=== PATIENT | female | born 1940 | race Caucasian/White ===

== ENCOUNTER → 2016-11-19 | Outpatient (CLI) | payer MEDICARE, OTHER | END | disposition home or self-care (01) | LOC: CFH 10:33 | PROVIDERS: ATTEND Family Medicine | DX: Z13.820 Encounter for screening for osteoporosis (principal); M81.0 Age-related osteoporosis without current pathological fracture | CPT/HCPCS: 77080 ==

== ENCOUNTER → 2016-12-06 | Outpatient (CLI) | payer MEDICARE, OTHER | END | disposition home or self-care (01) | LOC: EDSTATUS 11-18 15:53 → ROC 13:40 | PROVIDERS: ATTEND Radiology Radiation Oncology | DX: C50.911 Malignant neoplasm of unspecified site of right female breast (principal); R14.0 Abdominal distension (gaseous); M25.551 Pain in right hip; Z92.3 Personal history of irradiation | CPT/HCPCS: G0463 ==

== ENCOUNTER → 2018-05-21 | Outpatient (CLI) | payer MEDICARE, OTHER | END | disposition home or self-care (01) | LOC: ROC 11:37 | PROVIDERS: ATTEND Radiology Radiation Oncology | DX: Z02.9 Encounter for administrative examinations, unspecified (principal) ==

== ENCOUNTER → 2018-05-22 | Outpatient (CLI) | payer MEDICARE, OTHER | END | disposition home or self-care (01) | LOC: ROC 13:15 | PROVIDERS: ATTEND Radiology Radiation Oncology | DX: C79.51 Secondary malignant neoplasm of bone (principal); C50.111 Malignant neoplasm of central portion of right female breast; Z88.8 Allergy status to other drugs, medicaments and biological substances; Z79.899 Other long term (current) drug therapy | CPT/HCPCS: G0463 ==

== ENCOUNTER 2018-07-09 08:19 | Outpatient (CLI) | payer MEDICARE, OTHER | END 2018-07-09 23:59 | disposition home or self-care (01) | LOC: ROC 08:19 → EDSTATUS 05-19 14:51 | PROVIDERS: ATTEND Radiology Radiation Oncology | DX: Z08 Encounter for follow-up examination after completed treatment for malignant neoplasm (principal); C79.51 Secondary malignant neoplasm of bone | CPT/HCPCS: G0463 ==

== ENCOUNTER 2020-07-04 15:55 | Emergency (ER) | payer MEDICARE ==
[~2020-07-04] VITALS: Ht 170.2 cm; Wt 58.6 kg
[~2020-07-04 15:55] MED LIST: APIX5TAB PO; CALC-680 PO; CHOL10003 PO; CYAN-10 PO; DOXA2TAB9 PO; FURO20TA3 PO; LEVO125T PO; METH5TAB2 PO; METO25TA35 PO; OLME40TA22 PO; ONDA4TAB7 PO; OXYC-380 PO; OXYC15TA3 PO; POLY17PO5 PO
--- NOTE | 2020-07-04 16:42 | NUR ---
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
--- NOTE | 2020-07-04 17:14 | NUR ---
Pt's daughter and RN at bedside. Pt has hx of cancer right breast, lung and hip. Hx mastectomy. 2nd COVID vaccine given 06/30/20. Pt reports feeling SOB today and high blood pressure with headache and dizziness. BP currently 157/53.
--- NOTE | 2020-07-04 17:16 | NUR ---
Provider at bedside.
--- NOTE | 2020-07-04 17:38 | NUR ---
XR at bedside.
--- NOTE | 2020-07-04 17:42 | NUR ---
Pt ambulating to bathroom, steady equal gait.
[2020-07-04] MEDS ORDERED: SODIUM CHLORIDE FLUSH 10ML SYR IVF ONE (18:00)
[2020-07-04 18:15] LABS: BASOPHILS % (AUTO) 1 % (0-1); EOSINOPHILS % (AUTO) 6 % (1-7); LYMPHOCYTES % (AUTO) 19 % (22-44); MEAN CORPUSCULAR HEMOGLOBIN 31.4 pg (27.0-34.8); MEAN PLATELET VOLUME 7.5 fL (7.4-10.4); MONOCYTES % (AUTO) 10 % (2-9); NEUTROPHILS % (AUTO) 64 % (42-75); PLATELET COUNT 307 x10^3/uL (130-400); RED BLOOD COUNT 3.06 x10^6/uL (3.82-5.3); RED CELL DISTRIBUTION WIDTH 15.3 % (9.6-15.2)
[2020-07-04 18:21] LABS: MD NO
--- NOTE | 2020-07-04 18:21 | NUR ---
UA collected and sent to lab.
[2020-07-04 18:25] LABS: MICROSCOPIC NOT IND
[2020-07-04 18:30] LABS: ALBUMIN 4.1 g/dL (3.4-5.0); ANION GAP 8 mmol/L (5-15); CALCIUM 9.8 mg/dL (8.5-10.1); CHLORIDE 104 mmol/L (98-107)
[2020-07-04 18:35] LABS: ALANINE AMINOTRANSFERASE 14 U/L (12-78); ALKALINE PHOSPHATASE 64 U/L (45-117); BILIRUBIN,TOTAL 0.4 mg/dL (0.2-1.0); CREATININE 2.05 mg/dL (0.55-1.02); TOTAL PROTEIN 7.3 g/dL (6.4-8.2)
--- NOTE | 2020-07-04 20:34 | NUR ---
Pt ambulated to bathroom.
--- NOTE | 2020-07-04 20:35 | NUR ---
IV removed, catheter intact, hemostasis achieved, dressing applied.
--- NOTE | 2020-07-04 20:41 | NUR ---
Dr. Jacobsen at bedside.
[2020-07-04] MEDS ORDERED: METOPROLOL TARTRATE 25 MG TAB PO ONE (20:45)
[2020-07-04] MEDS ORDERED: DOXAZOSIN 1MG TABLET PO ONE (20:45)
[2020-07-04] MEDS ORDERED: APIXABAN 2.5 MG TABLET PO ONE (20:48)
[2020-07-04] MEDS ORDERED: METOPROLOL TARTRATE 25 MG TAB ONE (20:48)
[2020-07-04 20:51] VITALS: BP 183/69
--- NOTE | 2020-07-04 20:55 | NUR ---
Metoprolol given per eMAR. Requested mary from pharmacy. Pt resting comfortably, daughter at bedside.
--- NOTE | 2020-07-04 21:16 | NUR ---
Eliquis and doxazosin given per eMAR
== END 2020-07-04 21:37 | disposition home or self-care (01) ==
LOC: ED 19:55
DX: R42 Dizziness and giddiness (principal); I12.9 Hypertensive chronic kidney disease with stage 1 through stage 4 chronic kidney disease, or unspecified chronic kidney disease; N18.2 Chronic kidney disease, stage 2 (mild); R07.9 Chest pain, unspecified; I11.9 Hypertensive heart disease without heart failure; R94.31 Abnormal electrocardiogram [ECG] [EKG]
CPT/HCPCS: 36415; 71045; 80053; 81003; 83880; 85025; 93005; 99285